=== PATIENT | female | born 1985 | race Caucasian/White ===

== ENCOUNTER 2016-07-14 14:04 | Emergency (ER) | payer OTHER ==
[2016-07-14 15:27] VITALS: BP 95/58
--- NOTE | 2016-07-14 15:55 | UC ---
Respiratory Complaint HPI - HPI Summary HPI Summary: cold symptoms for a week. Coughing, sneezing, sinuses congested, scratchy throat. Son was ill with same last week. She is 25 weeks , just wants to know what meds she can take. No problems with so far. No asthma. Coughing at night. Stuffy sinuses. Eating and drinking well. - History of Current Complaint Chief Complaint: UCRespiratory Stated Complaint: CONGESTION SORE THROAT Time Seen by Provider: 07/14/16 15:31 Hx Obtained From: Patient Onset/Duration: Gradual Onset, Lasting Weeks - 1 Timing: Constant Severity Initially: Mild Severity Currently: Mild Character: Cough: Nonproductive Aggravating Factors: Exertion, Recumbent Position Alleviating Factors: Nothing Associated Signs And Symptoms: Positive: Chills, URI, Nasal Congestion, Hoarseness, Sinus Discomfort. Negative: Wheezing, Hemoptysis, Dizziness, Calf Pain, Calf Swelling, Edema - Risk Factors Pulmonary Embolism Risk Factors: Negative Cardiac Risk Factors: Negative Pseudomonas Risk Factors: Negative Tuberculosis Risk Factors: Negative - Allergies/Home Medications Allergies/Adverse Reactions: Allergies Allergy/AdvReac Type Severity Reaction Status Date / Time No Known Allergies Allergy Verified 07/14/16 15:27 Home Medications: Home Medications NK [No Home Medications Reported] 07/14/16 [History Confirmed 07/14/16] PMH/Surg Hx/FS Hx/Imm Hx Previously Healthy: Yes - Surgical History Surgical History: None - Family History Known Family History: Positive: Hypertension - Social History Occupation: Employed Full-time Alcohol Use: None Substance Use Type: None Smoking Status (MU): Never Smoked Tobacco Review of Systems Constitutional: Fatigue Skin: Negative Eyes: Negative ENT: Sore Throat, Nasal Discharge Respiratory: Cough Cardiovascular: Negative Gastrointestinal: Negative Genitourinary: Negative Motor: Negative Neurovascular: Negative Musculoskeletal: Negative Neurological: Negative Psychological: Negative All Other Systems Reviewed And Are Negative: Yes Physical Exam Triage Information Reviewed: Yes Appearance: Well-Appearing, No Pain Distress, Well-Nourished Vital Signs: Initial Vital Signs Temp 97.8 F 07/14/16 15:23 Pulse 83 07/14/16 15:23 Resp 14 07/14/16 15:23 BP 95/58 07/14/16 15:23 Pulse Ox 98 07/14/16 15:23 Vital Signs Reviewed: Yes Eye Exam: Normal ENT: Positive: Hearing grossly normal, Pharyngeal erythema, Nasal congestion, Nasal drainage, TMs normal, Muffled/hoarse voice - hoarse. Negative: Tonsillar swelling, Tonsillar exudate, Trismus Neck exam: Normal Neck: Positive: Supple Respiratory Exam: Normal Respiratory: Positive: Lungs clear, Normal breath sounds, No respiratory distress, No accessory muscle use Cardiovascular Exam: Normal Musculoskeletal Exam: Normal Neurological Exam: Normal Psychological Exam: Normal Skin Exam: Normal UC Diagnostic Evaluation - Laboratory O2 Sat by Pulse Oximetry: 98 Diagnostic Studies Comment: strep neg Respiratory Course/Dx - Differential Dx/Diagnosis Differential Diagnosis/HQI/PQRI: Bronchitis, Lower Resp Infection, Sinusitis Provider Diagnoses: uri Discharge - Discharge Plan Condition: Stable Disposition: HOME Patient Education Materials: Upper Respiratory Infection (ED) Referrals: Carla Retana MD [Primary Care Provider] - Additional Instructions: Cold medications that are safe in : for cough, plain dextromethorphan (Delsym, Robitussin Cough, Benylin); also an herbal cough syrup called Zarbee's for sore throat/congestion: Ponce lozenges; also chlorpheniramine (Chlor- Trimeton) Some OB/GYNs will allow a dose of Sudafed occasionally for congestion, but others don't like it, so you should ask your doctor about that.
== END 2016-07-14 16:15 | disposition home or self-care (01) ==
LOC: UCCORT 14:04
DX: O99.512 Diseases of the respiratory system complicating pregnancy, second trimester (principal); J06.9 Acute upper respiratory infection, unspecified; R09.81 Nasal congestion; O26.893 Other specified pregnancy related conditions, third trimester; R04.2 Hemoptysis; O26.813 Pregnancy related exhaustion and fatigue, third trimester; Z3A.25 25 weeks gestation of pregnancy
CPT/HCPCS: 87651; 99211; G0463